=== PATIENT | female | born 1955 | race Caucasian/White ===

== ENCOUNTER 2019-12-13 17:34 | Emergency (ER) | payer SELFPAY | END 2019-12-13 17:49 | LOC: JD.ED 17:34 | DX: Z53.21 Procedure and treatment not carried out due to patient leaving prior to being seen by health care provider (principal) ==

== ENCOUNTER 2022-06-22 07:57 | Emergency (ER) | payer MEDICARE, BC ==
[2022-06-22] MEDS ORDERED: Lidocaine 1% 10 ML MDV INJECT ONE (08:54)
[2022-06-22] MEDS ORDERED: Sodium Chloride 0.9% 1,000 ML IV ONE (08:55)
[2022-06-22] MEDS ORDERED: Ondansetron 4 MG/2 ML SDV IVPUSH ONE (09:39)
[2022-06-22] MEDS ORDERED: Ketorolac 30 MG/ML SDV IVPUSH ONE (10:35)
== END 2022-06-22 12:25 | disposition home or self-care (01) ==
LOC: JD.ED 07:57 → MERGE 07:57 → JD.ED 12:25
DX: R55 Syncope and collapse (principal); S92.511A Displaced fracture of proximal phalanx of right lesser toe(s), initial encounter for closed fracture; R56.9 Unspecified convulsions; Z88.5 Allergy status to narcotic agent; Z79.899 Other long term (current) drug therapy; Z87.891 Personal history of nicotine dependence; W18.09XA Striking against other object with subsequent fall, initial encounter
CPT/HCPCS: 36415; 71046; 73620; 73660; 80053; 81001; 85025; 93005; 96361; 96374; 96375; 99284; J1885; J2405; J7030; 28515; 93010; J3490